=== PATIENT | female | born 1950 | race Hispanic/Latino ===

== ENCOUNTER 2021-07-01 09:08 | Emergency (ER) | payer OTHER ==
[~2021-07-01] VITALS: Ht 149.9 cm; Wt 75.4 kg
[2021-07-01] MEDS ORDERED: MYSOLINE50 MG PO (09:32)
[2021-07-01] MEDS ORDERED: FAMOTIDINE20 MG PO (09:32)
[2021-07-01] MEDS ORDERED: METFORMIN HCL500 M1 PO (09:32)
[2021-07-01] MEDS ORDERED: NEURONTIN400 MG PO (09:32)
[2021-07-01] MEDS ORDERED: LEVOTHYROXINE88 MCG PO (09:32)
[2021-07-01] MEDS ORDERED: VITAMIN D350 MCG (09:32)
[2021-07-01] MEDS ORDERED: SIMVASTATIN20 MG PO (09:32)
[2021-07-01] MEDS ORDERED: LEXAPRO20 MG PO (09:32)
[2021-07-01] MEDS ORDERED: MELOXICAM7.5 MG PO (09:32)
[2021-07-01] MEDS ORDERED: LISINOPRIL10 MG PO (09:32)
[2021-07-01] MEDS ORDERED: BACITRACIN ZINC 0.9GM TP ONE (10:15)
== END 2021-07-01 12:15 | disposition home or self-care (01) ==
LOC: FSED 09:31
DX: S00.83XA Contusion of other part of head, initial encounter (principal); M54.2 Cervicalgia; W01.190A Fall on same level from slipping, tripping and stumbling with subsequent striking against furniture, initial encounter; Y93.01 Activity, walking, marching and hiking; Y92.098 Other place in other non-institutional residence as the place of occurrence of the external cause; I10 Essential (primary) hypertension; E11.9 Type 2 diabetes mellitus without complications; E78.5 Hyperlipidemia, unspecified; K21.9 Gastro-esophageal reflux disease without esophagitis; E03.9 Hypothyroidism, unspecified
CPT/HCPCS: 70450; 72125; 99283

== ENCOUNTER 2021-09-26 14:49 | Emergency (ER) | payer OTHER ==
[~2021-09-26] VITALS: Ht 152.4 cm; Wt 73.3 kg
[~2021-09-26 14:49] MED LIST: FAMOTIDINE20 MG PO; LEVOTHYROXINE88 MCG PO; LEXAPRO20 MG PO; LISINOPRIL10 MG PO; MELOXICAM7.5 MG PO; METFORMIN HCL500 M1 PO; MYSOLINE50 MG PO; NEURONTIN400 MG PO; SIMVASTATIN20 MG PO; VITAMIN D350 MCG
[2021-09-26] MEDS ORDERED: CITALOPRAM HBR20 MG PO (16:03)
[2021-09-26] MEDS ORDERED: ZOLPIDEM TARTRAT5 MG PO (16:03)
[2021-09-26] MEDS ORDERED: ANTIVERT25 M1 PO (17:11)
== END 2021-09-26 17:26 | disposition home or self-care (01) ==
LOC: FSED 15:36
DX: R42 Dizziness and giddiness (principal); M54.2 Cervicalgia; R51.9 Headache, unspecified; I10 Essential (primary) hypertension; E11.9 Type 2 diabetes mellitus without complications; E78.5 Hyperlipidemia, unspecified; E03.9 Hypothyroidism, unspecified; K21.9 Gastro-esophageal reflux disease without esophagitis; M54.9 Dorsalgia, unspecified; G89.29 Other chronic pain
CPT/HCPCS: 70450; 72125; 80053; 85025; 99284